=== PATIENT | female | born 1995 | race American Indian/Alaskan Native ===

== ENCOUNTER 2017-04-29 12:42 | Emergency (ER) | payer MEDICAID, OTHER ==
[2017-04-29 13:21] VITALS: BP 123/84
[2017-04-29] MEDS ORDERED: NORCO 5/325 PO ONE (14:33)
--- NOTE | 2017-04-29 14:36 | XRay Report ---
Right foot 3 views: History: Pain and swelling. Findings: No articular abnormality. No periosteal reaction or lytic lesion. No fracture. Impression: Essentially negative right foot.
[2017-04-29] MEDS ORDERED: MORPHINE IM ONE (15:20)
--- NOTE | 2017-04-29 15:20 | Emergency Department Report ---
HPI - General Chief Complaint: Extremity Injury, Lower Time Seen by Provider: 04/29/17 14:32 - HPI HPI: This is a 22-year-old Afro-[place] female presents the emergency department with complaint of right ankle pain and swelling after falling on concrete and stairs leading up to her department last night and twisting her ankle. The patient is been unable to walk and bear weight since that time. She has not taken anything for her symptoms prior to presentation. She denies any past medical surgical history. She is not currently have a primary care physician as she lives in [place] but is transitioning to live in [place]. ED Past Medical Hx - Past Medical History Previous Medical History?: No - Surgical History Past Surgical History?: No - Social History Smoking Status: Current Every Day Smoker Substance Use Type: Alcohol - Medications Home Medications: Home Medications Medication Instructions Recorded Confirmed Last Taken Type oxyCODONE /ACETAMINOPHEN [Percocet 1 tab PO Q6HR PRN #14 tablet 04/29/17 Unknown Rx 5/325] ED Review of Systems ROS: Stated complaint: RT ANKLE INJURY Other details as noted in HPI Comment: All other systems reviewed and negative Constitutional: denies: chills, fever Eyes: denies: eye pain, eye discharge, vision change ENT: denies: ear pain, throat pain Respiratory: denies: cough, shortness of breath, wheezing Cardiovascular: denies: chest pain, palpitations Gastrointestinal: denies: abdominal pain, nausea, diarrhea Genitourinary: denies: urgency, dysuria, discharge Musculoskeletal: joint swelling, arthralgia. denies: back pain Skin: denies: rash, lesions Neurological: denies: headache, weakness, paresthesias Physical Exam - Physical Exam Vital Signs: Vital Signs 04/29/17 04/29/17 13:16 14:55 Temperature 98.9 F Pulse Rate 78 Respiratory 16 16 Rate Blood Pressure 123/84 O2 Sat by Pulse 100 Oximetry Physical Exam: GENERAL: The patient is well-developed well-nourished. HEENT: Normocephalic. Atraumatic. Extraocular motions are intact. Patient has moist mucous membranes. NECK: Supple. Trachea is midline. CHEST/LUNGS: Clear to auscultation. There is no respiratory distress noted. HEART/CARDIOVASCULAR: Regular. There is no tachycardia. There is no gallop rub or murmur. ABDOMEN: Abdomen is soft, nontender. Patient has normal bowel sounds. There is no abdominal distention. SKIN: There is circumferential nonpitting swelling to the right ankle. NEURO: The patient is awake, alert, and oriented. The patient is cooperative. The patient has no focal neurologic deficits. The patient has normal speech. MUSCULOSKELETAL: Tenderness to palpation to the circumferential right ankle. Decreased range of motion of the ankle and foot secondary to pain. Patient is neurovascularly intact. ED Course Vital Signs 04/29/17 04/29/17 13:16 14:55 Temperature 98.9 F Pulse Rate 78 Respiratory 16 16 Rate Blood Pressure 123/84 O2 Sat by Pulse 100 Oximetry ED Medical Decision Making - Radiology Data Radiology results: image reviewed interpreted by me: X-ray of the right foot does not show any fracture, dislocation or any acute process. X-ray of the right ankle shows a distal fibular fracture. No dislocation. - Medical Decision Making 22-year-old female presents with right ankle pain and swelling since last night when she twisted her foot and ankle while trying to go up some steps of her apartment. She has been nonweightbearing and unable to ambulate since that time. Originally the patient had a foot x-ray ordered and completed that did not show any abnormalities. She was then sent back for a clinical x-ray which showed a distal right fibular fracture. It may just be a fracture but the nature of this fracture makes me concern for possible ligamentous injury as well. Either way, the patient will be placed in a splint and placed on crutches. She was given a referral for Dr. Rehman, orthopedics. She will remain nonweightbearing, use rest ice compression and elevation, will get a prescription for a small amount of pain medication, and will follow-up with Dr. Rehman. She'll return to the ER if any worsening of her symptoms or any acute distress. - Differential Diagnosis fracture, sprain, strain, ligament tear Critical Care Time: No Critical care attestation.: If time is entered above; I have spent that time in minutes in the direct care of this critically ill patient, excluding procedure time. ED Disposition Clinical Impression: Closed right ankle fracture Qualifiers: Encounter type: initial encounter Qualified Code(s): S82.891A - Other fracture of right lower leg, initial encounter for closed fracture Disposition: - TO HOME OR SELFCARE Is pt being admited?: No Condition: Stable Instructions: Ankle Fracture (ED) Additional Instructions: Please follow-up with an orthopedist early next week. I have given you a referral for a local orthopedist, Dr. Rehman, to follow up regarding your ankle fracture. Remain in the splint until follow-up with the orthopedist. You can use rest and elevation as well as ice. Use crutches for any ambulation as you should remain nonweightbearing to the affected right lower extremity. Return to the emergency department with any worsening of her symptoms or any acute distress. You've been prescribed a medication that is sedating. Therefore this medication cannot be mixed with alcohol, or taken prior to driving, working, or being responsible for children. Prescriptions: oxyCODONE /ACETAMINOPHEN [Percocet 5/325] 1 tab PO Q6HR PRN #14 tablet PRN Reason: Pain Referrals: ALAN REHMAN MD [Staff Physician] - 3-5 Days Time of Disposition: 15:24
--- NOTE | 2017-04-29 16:15 | XRay Report ---
Right ankle 3 views. History: Pain after trauma. Findings: There is a fracture of the inferior tip of the lateral malleolus with mild soft tissue swelling. There no other fractures or other significant findings.
== END 2017-04-29 16:09 | disposition home or self-care (01) ==
LOC: ED 12:42
DX: S82.891A Other fracture of right lower leg, initial encounter for closed fracture (principal); F17.200 Nicotine dependence, unspecified, uncomplicated; W10.9XXA Fall (on) (from) unspecified stairs and steps, initial encounter; Y93.89 Activity, other specified; Y99.9 Unspecified external cause status; Y92.89 Other specified places as the place of occurrence of the external cause
CPT/HCPCS: 29515; 73610; 73630; 96372; 99284; J2270

== ENCOUNTER 2019-04-01 02:45 | Emergency (ER) | payer SELFPAY ==
[2019-04-01 03:21] LABS: Basophils # (Auto) 0.1 K/mm3 (0.0-0.1); Basophils % (Auto) 0.4 % (0.0-1.8); Eosinophils # (Auto) 0.4 K/mm3 (0.0-0.4); Eosinophils % (Auto) 3.3 % (0.0-4.3); Hematocrit 47.2 % (30.3-42.9); Hemoglobin 15.7 gm/dl (10.1-14.3); Lymphocytes # (Auto) 3.5 K/mm3 (1.2-5.4); Lymphocytes % (Auto) 27.9 % (13.4-35.0); Mean Corpuscular HGB Conc 33 % (30-34); Mean Corpuscular Volume 89 fl (79-97); Monocytes # (Auto) 0.9 K/mm3 (0.0-0.8); Monocytes % (Auto) 7.3 % (0.0-7.3); Platelet Count 292 K/mm3 (140-440); Red Blood Count 5.33 M/mm3 (3.65-5.03); Red Cell Distribution Width 15.8 % (13.2-15.2)
[2019-04-01] MEDS ORDERED: NACL 0.9% 1000 ML 1,000 ML IV ONE (03:42)
[2019-04-01] MEDS ORDERED: ZOFRAN IV ONE (03:42)
[2019-04-01] MEDS ORDERED: MORPHINE IV ONE (03:42)
[2019-04-01] MEDS ORDERED: PEPCID IV ONE (03:42)
--- NOTE | 2019-04-01 04:21 | Emergency Department Report ---
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 Patient states that the pain is sharp, burning and cramping since onset. Patient denies dysuria, urinary frequency and urgency, dizziness, fever, chills, chest pain, shortness of breath, vaginal bleeding, diarrhea, traumatic injury, heavy lifting or hematuria. Patient states that she has not been able to keep anything down since the onset of the pain. MD Complaint: abdominal pain, other (Nausea and vomiting) -: Sudden, hour(s) (5) Location: RUQ, epigastric Radiation: RUQ, epigastric Migration to: RUQ, epigastric Severity: severe Severity scale (0 -10): 8 Quality: cramping, aching, sharp, burning Consistency: constant Improves With: nothing Worsens With: eating, vomiting Associated Symptoms: nausea, vomiting. denies: diarrhea, fever, chills, constipation, dysuria, hematemesis, hematochezia, melena, hematuria, anorexia, syncope - Related Data Previous Rx's Medication Instructions Recorded Last Taken Type oxyCODONE /ACETAMINOPHEN [Percocet 1 tab PO Q6HR PRN #14 tablet 04/29/17 Unknown Rx 5/325] Dicyclomine [Bentyl] 20 mg PO Q6H PRN #24 tablet 04/01/19 Unknown Rx Ondansetron [Zofran Odt] 4 mg PO Q6HR #15 tab.rapdis 04/01/19 Unknown Rx Ranitidine HCl [Zantac] 150 mg PO Q12H #30 tablet 04/01/19 Unknown Rx cephALEXin [Keflex] 500 mg PO Q8HR #30 cap 04/01/19 Unknown Rx Allergies Allergy/AdvReac Type Severity Reaction Status Date / Time No Known Allergies Allergy Verified 03/03/19 12:20 ED Review of Systems ROS: Stated complaint: ABD PAIN Other details as noted in HPI Constitutional: no symptoms reported. denies: chills, fever Eyes: denies: eye pain, eye discharge, vision change ENT: denies: ear pain, throat pain, dental pain, hearing loss, epistaxis, congestion Respiratory: no symptoms reported. denies: cough, orthopnea, shortness of breath, SOB with exertion, SOB at rest, wheezing Cardiovascular: denies: chest pain, palpitations, edema, syncope, paroxysmal nocturnal dyspnea Endocrine: no symptoms reported. denies: increased hunger, unexplained weight gain Gastrointestinal: abdominal pain, nausea, vomiting. denies: diarrhea, constipation, hematemesis, hematochezia Genitourinary: denies: urgency, dysuria, frequency, hematuria, discharge, abnormal menses, dyspareunia Musculoskeletal: denies: back pain, joint swelling, arthralgia Skin: denies: rash, lesions, change in color, change in hair/nails, pruritus Neurological: denies: headache, weakness, paresthesias Psychiatric: denies: anxiety, depression Hematological/Lymphatic: denies: easy bleeding, easy bruising ED Past Medical Hx - Past Medical History Previous Medical History?: No - Surgical History Past Surgical History?: No - Social History Smoking Status: Current Every Day Smoker Substance Use Type: Alcohol - Medications Home Medications: Home Medications Medication Instructions Recorded Confirmed Last Taken Type oxyCODONE /ACETAMINOPHEN [Percocet 1 tab PO Q6HR PRN #14 tablet 04/29/17 Unknown Rx 5/325] Dicyclomine [Bentyl] 20 mg PO Q6H PRN #24 tablet 04/01/19 Unknown Rx Ondansetron [Zofran Odt] 4 mg PO Q6HR #15 tab.rapdis 04/01/19 Unknown Rx Ranitidine HCl [Zantac] 150 mg PO Q12H #30 tablet 04/01/19 Unknown Rx cephALEXin [Keflex] 500 mg PO Q8HR #30 cap 04/01/19 Unknown Rx ED Physical Exam - General Limitations: No Limitations General appearance: alert, in no apparent distress - Head Head exam: Present: atraumatic, normocephalic, normal inspection - Eye Eye exam: Present: normal appearance, PERRL, EOMI Pupils: Present: normal accommodation - ENT ENT exam: Present: normal exam, normal orophraynx, mucous membranes moist, TM's normal bilaterally, normal external ear exam - Neck Neck exam: Present: normal inspection, full ROM. Absent: tenderness, meningismus, lymphadenopathy, thyromegaly - Respiratory Respiratory exam: Present: normal lung sounds bilaterally. Absent: respiratory distress, wheezes, rales, chest wall tenderness, accessory muscle use, decreased breath sounds, prolonged expiratory - Cardiovascular Cardiovascular Exam: Present: regular rate, normal rhythm, normal heart sounds. Absent: bradycardia, tachycardia, systolic murmur, diastolic murmur, rubs, gallop - GI/Abdominal GI/Abdominal exam: Present: soft, tenderness (RUQ tenderness with guarding), guarding, normal bowel sounds. Absent: hyperactive bowel sounds, hypoactive bowel sounds, organomegaly - Rectal Rectal exam: Present: deferred - Extremities Exam Extremities exam: Present: normal inspection, full ROM, normal capillary refill. Absent: pedal edema, joint swelling, calf tenderness - Back Exam Back exam: Present: normal inspection, full ROM. Absent: tenderness, CVA tenderness (R), CVA tenderness (L), muscle spasm, paraspinal tenderness, vertebral tenderness - Neurological Exam Neurological exam: Present: alert, oriented X3, CN II-XII intact, normal gait, reflexes normal - Psychiatric Psychiatric exam: Present: normal affect, normal mood - Skin Skin exam: Present: warm, dry, intact, normal color. Absent: rash ED Course Vital Signs 04/01/19 04/01/19 02:52 06:29 Temperature 98.2 F 98.9 F Pulse Rate 94 H 90 Respiratory 20 18 Rate Blood Pressure 110/79 Blood Pressure 119/68 [Left] O2 Sat by Pulse 97 99 Oximetry - Reevaluation(s) Reevaluation #1: 04/01/19 06:06 Patient is alert and oriented 3 and is not in distress but in pain, and with normal vital signs. Lab test results were reviewed and is remarkable for acute leukocytosis of 12,700. The rest of the lab for studies as unremarkable. The right upper quadrant gallbladder ultrasound shows normal gallbladder, normal gallbladder wall thickness within normal cholecystic fluids or gallstones. Patient was treated for pain in the ED and on reevaluation, patient's pain is well controlled with medications. Patient's symptoms are likely due to GERD complications given that the patient's symptoms began a few hours after she had had dinner. Patient was discharged home on medications which included her medications and antacids, and was advised to follow up with her primary care physician in 5-7 days for reevaluation or return to the ED immediately if symptoms get worse. ED Medical Decision Making - Lab Data Result diagrams: 04/01/19 03:11 04/01/19 03:11 - Radiology Data Radiology results: report reviewed, image reviewed The right upper quadrant gallbladder ultrasound shows normal gallbladder and normal gallbladder wall thickness, no gallstones or cholecystic fluid. - Medical Decision Making Patient is alert and oriented 3 and is not in distress but in pain, and with normal vital signs. Lab test results were reviewed and is remarkable for acute leukocytosis of 12,700. The rest of the lab for studies as unremarkable. The right upper quadrant gallbladder ultrasound shows normal gallbladder, normal g allbladder wall thickness within normal cholecystic fluids or gallstones. Patient was treated for pain in the ED and on reevaluation, patient's pain is well controlled with medications. Patient's symptoms are likely due to GERD complications given that the patient's symptoms began a few hours after she had had dinner. Patient was discharged home on medications which included her medications and antacids, and was advised to follow up with her primary care physician in 5-7 days for reevaluation or return to the ED immediately if symptoms get worse. - Differential Diagnosis abdominal pain, nausea and vomiting, Gallstones; GERD Critical care attestation.: If time is entered above; I have spent that time in minutes in the direct care of this critically ill patient, excluding procedure time. ED Disposition Clinical Impression: Acute abdominal pain in right upper quadrant, Nausea and vomiting in adult, Acute urinary tract infection GERD (gastroesophageal reflux disease) Qualifiers: Esophagitis presence: without esophagitis Qualified Code(s): K21.9 - Gastro- esophageal reflux disease without esophagitis Disposition: DC-01 TO HOME OR SELFCARE Is pt being admited?: No Does the pt Need Aspirin: No Condition: Stable Instructions: Gastroesophageal Reflux Disease (ED), Acute Nausea and Vomiting (ED), Abdominal Pain (ED), Urinary Tract Infection in Women (ED) Additional Instructions: Take medications with food, drink plenty of fluids and follow up with your primary care physician in 5-7 days for reevaluation, or return to the ED immediately if symptoms get worse. Prescriptions: Dicyclomine [Bentyl] 20 mg PO Q6H PRN #24 tablet PRN Reason: Pain , Severe (7-10) cephALEXin [Keflex] 500 mg PO Q8HR #30 cap Ranitidine HCl [Zantac] 150 mg PO Q12H #30 tablet Ondansetron [Zofran Odt] 4 mg PO Q6HR #15 tab.rapdis Referrals: EUSEBIA CHILDERS MD [Primary Care Provider] - 3-5 Days Forms: Work/School Release Form(ED) Time of Disposition: 07:22 Print Language: HAITIAN
[2019-04-01 04:27] LABS: Alanine Aminotransferase 10 units/L (7-56); Albumin 3.7 g/dL (3.9-5); BUN/Creatinine Ratio 14; Blood Urea Nitrogen 11 mg/dL (7-17); Calcium 9.4 mg/dL (8.4-10.2); Hemolysis Index 38
[2019-04-01] MEDS ORDERED: ALUM-MAG HYDROX-SIMETH 200-200-20MG/5ML PO ONE (04:35)
[2019-04-01] MEDS ORDERED: LIDOCAINE VISCOUS 2% PO ONE (04:35)
--- NOTE | 2019-04-01 04:45 | Ultrasound Report ---
PROCEDURE: US ABDOMEN LIMITED TECHNIQUE: Real-time sonography was performed of the gallbladder with image documentation. HISTORY: RUQ PAIN COMPARISONS: None . FINDINGS: The gallbladder is normal. Common bile duct is normal measuring 1 mm. The portion of the right kidney and liver imaged is normal. . IMPRESSION: Normal Examination . This document is electronically signed by Stephani Boston DO., April 01 2019 04:42:53 AM ET
[2019-04-01 06:29] VITALS: BP 119/68
[2019-04-01 07:09] LABS: Bacteria,Urine 1+ /HPF (Negative); Bilirubin,Urine NEG (Negative); Blood,Urine NEG (Negative); Color,Urine Yellow (Yellow); Mucus,Urine 1+ /HPF; Protein,Urine <15 mg/dL mg/dL (Negative); Urobilinogen,Urine < 2.0 mg/dL (<2.0)
== END 2019-04-01 07:47 | disposition home or self-care (01) ==
LOC: ED 02:45
DX: K21.9 Gastro-esophageal reflux disease without esophagitis (principal); N39.0 Urinary tract infection, site not specified
CPT/HCPCS: 36415; 76705; 80053; 81001; 84703; 85025; 96361; 96374; 96375; 99284; J2270; J2405; J7030